=== PATIENT | female | born 1955 | race Caucasian/White ===

== ENCOUNTER → 2019-10-21 08:02 | Outpatient (BNVA) | payer MEDICARE, MEDICAID, SELFPAY | PROVIDERS: Family Provider Nurse Practitioner Family; PCP Registered Nurse; Visit Provider Registered Nurse | DX: Z01.419 Encounter for gynecological examination (general) (routine) without abnormal findings (principal); Z12.11 Encounter for screening for malignant neoplasm of colon; K21.9 Gastro-esophageal reflux disease without esophagitis; M81.0 Age-related osteoporosis without current pathological fracture | CPT/HCPCS: 88175 ==

== ENCOUNTER 2019-11-22 12:18 | Outpatient (CLI) | payer MEDICARE, MEDICAID, SELFPAY ==
--- NOTE | 2019-11-22 13:00 | MM_ITS ---
WS: [id number] BILATERAL DIGITAL SCREENING MAMMOGRAPHY WITH CAD CLINICAL INFORMATION: screening breast cancer HISTORY: Screening mammogram. No current complaints. COMPARISON: May 18, 2016 TECHNIQUE: Bilateral CC and MLO views. FINDINGS: The breasts are composed of heterogeneous fibroglandular density tissue, which can limit the detectio n of small underlying mass lesions. Lucent centered calcifications. No suspicious mass, asymmetry, ca lcifications, or architectural distortion. No evidence of malignancy. MM/[place] [id number] IMPRESSION: BI-RADS: 2-Benign FOLLOW UP: 1 Year Follow-up Recommend return to annual screening mammography.
--- NOTE | 2019-11-22 13:33 | XR_ITS ---
WS: [id number] Bone mineral density performed on a [employer], 11/22/2019 Clinical data: bone density screen-medicare Findings: The first 4 lumbar vertebral bodies demonstrated the bone mineral density of 0.849 g/cm2 for a young adult T score of -2.8. There is a slight levoscoliosis. Measurement of the left hip reveals a bone mineral density of 0.787 g/cm2 with a young adult T score of -1.7. Measurement of the right hip reveals the bone mineral density of 0.807 g/cm2 for young adult T score of -1.6. XR/XR DEXA axial skeleton* [id number] Impression: 1. Osteoporosis of the lumbar vertebral bodies. 2. Osteopenia of both hips.
== END 2019-11-22 12:19 | disposition home or self-care (01) ==
LOC: RADSHAW 12:22
PROVIDERS: Family Provider Registered Nurse; PCP Registered Nurse; Visit Provider Registered Nurse
DX: M81.0 Age-related osteoporosis without current pathological fracture (principal); Z12.31 Encounter for screening mammogram for malignant neoplasm of breast
CPT/HCPCS: 77067; 77080

== ENCOUNTER 2020-03-13 07:43 | Outpatient (CLI) | payer MEDICARE, MEDICAID, SELFPAY ==
--- NOTE | 2020-03-13 08:00 | USCV_ITS ---
MorganZeeshan yorkine Age: 64 Gender: F : 1955 Exam Date: 03/13/2020 08:20 Ordering Phys: Carolynn Carbone CERTIFIED OPHTHALMIC SURGICAL ASSISTANT Technologist: HARRISON SOTO [place] [facility] [place]: [place] LEG PAIN PROCEDURES: Venous duplex imaging was performed in only the right lower extremity. The following venous structures were evaluated: common femoral vein, profunda vein, proximal portion of the greater saphenous vein, superficial femoral vein, and the popliteal vein. In addition, the posterior tibial and peroneal trunk were evaluated. Serial compression, augmentation maneuvers, and spectral Doppler flow evaluation were performed. FINDINGS: Normal 2-D Doppler and augmentation and compressibility throughout the lower extremity venous structures. Additional imaging through the proximal calf veins also reveals no thrombus. Limited evaluation of the greater saphenous vein is patent with no thrombus.. CONCLUSIONS No evidence of right lower extremity DVT. . Ralph Naranjo MD (Electronically Signed) Final Date: 13 March 2020 13:21 Amended: 16 March 2020 12:34 C
== END 2020-03-13 07:44 | disposition home or self-care (01) ==
PROVIDERS: PCP Registered Nurse; Visit Provider Registered Nurse
DX: M79.604 Pain in right leg (principal)
CPT/HCPCS: 93971

== ENCOUNTER 2021-02-25 12:44 | Outpatient (CLI) | payer MEDICARE, MEDICAID, SELFPAY ==
--- NOTE | 2021-02-25 13:00 | MM_ITS ---
WS: [id number] BILATERAL DIGITAL SCREENING MAMMOGRAPHY WITH CAD CLINICAL INFORMATION: Z12.31 - Encounter for screening mammogram for malignant ... HISTORY: Screening mammogram. No current complaints. COMPARISON: November 14, 2019 TECHNIQUE: Bilateral CC and MLO views. FINDINGS: The breasts are composed of heterogeneous fibroglandular density tissue, which can limit the detectio n of small underlying mass lesions. Punctate and lucent centered calcifications. No suspicious mass, asymmetry, calcifications, or architectural distortion. No evidence of malignancy. MM/[id number] IMPRESSION: BI-RADS: 2-Benign FOLLOW UP: 1 Year Follow-up Recommend return to annual screening mammography.
== END 2021-02-25 12:45 | disposition home or self-care (01) ==
LOC: RADSHAW 12:49
PROVIDERS: PCP Registered Nurse; Visit Provider Registered Nurse
DX: Z12.31 Encounter for screening mammogram for malignant neoplasm of breast (principal)
CPT/HCPCS: 77067

== ENCOUNTER → 2021-11-08 08:17 | Outpatient (BNVA) | payer MEDICARE, MEDICAID, SELFPAY | PROVIDERS: PCP Registered Nurse; Visit Provider Registered Nurse | DX: I10 Essential (primary) hypertension (principal); E78.5 Hyperlipidemia, unspecified | CPT/HCPCS: 80053; 80061; 85025; 86141 ==

== ENCOUNTER → 2021-12-23 11:50 | Outpatient (BNVA) | payer MEDICARE, MEDICAID, SELFPAY | PROVIDERS: PCP Registered Nurse; Visit Provider Internal Medicine | DX: G45.9 Transient cerebral ischemic attack, unspecified (principal); I10 Essential (primary) hypertension; Z79.01 Long term (current) use of anticoagulants | CPT/HCPCS: 99204 ==

== ENCOUNTER 2022-02-15 12:52 | Outpatient (CLI) | payer MEDICARE, MEDICAID, SELFPAY ==
--- NOTE | 2022-02-15 13:30 | USCV_ITS ---
Michelle Morgan Age: 66 Gender: F : 1955 Exam Date: 02/15/2022 13:06 Ordering Phys: Cameron Herman M.D ([email or web address]) Technologist: QUETA [place] [facility] [place]: dizzy Risk Factors: Previous Vascular Surgery: Right Brachial BP: / Left Brachial BP: / Right Left Velocity (cm/s) Spectral Plaque Velocity (cm/s) Spectral Plaque Syst/Diast Broadening Syst/Diast Broadening 94.80/ 18.70 Prox CCA 104.30/ 25.20 71.70/ 14.30 Mid CCA 95.30 / 27.00 78.30/ 18.70 Distal CCA 93.50 / 25.20 107.90/21.60 Hetro Prox ICA 91.70 / 14.40 Hetro 133.10/34.20 Mid ICA 122.30/ 37.80 125.90/43.20 Distal ICA 122.30/ 36.00 136.70 ECA 120.50 1.40 ICA/CCA 1.17 Antegrade Vertebral Antegrade 79.20/ 19.80 cm/s 61.70/ 15.40 cm/s Bi Subclavian Bi 104.3 149.9 0 0 FINDINGS Comparison: none available. No significant elevation of systolic or diastolic velocities. Waveforms are normal. Minimal bilateral, carotid atherosclerosis with no elevation of velocity. Antegrade vertebral arteries. CONCLUSIONS Bilateral ICA stenosis less than 50%. Mild carotid atherosclerosis. Dr. Mayte Diane DO (Electronically Signed) Final Date: 15 Feb 2022 15:39 S
== END 2022-02-15 12:53 | disposition home or self-care (01) ==
PROVIDERS: PCP Registered Nurse; Visit Provider Internal Medicine
DX: I65.23 Occlusion and stenosis of bilateral carotid arteries (principal)
CPT/HCPCS: 93880

== ENCOUNTER → 2022-03-24 14:31 | Outpatient (BNVA) | payer MEDICARE, MEDICAID, SELFPAY | PROVIDERS: PCP Registered Nurse; Visit Provider Internal Medicine | DX: I10 Essential (primary) hypertension (principal); G45.9 Transient cerebral ischemic attack, unspecified | CPT/HCPCS: 99213; 99214 ==

== ENCOUNTER 2022-07-22 14:50 | Outpatient (CLI) | payer MEDICARE, MEDICAID, SELFPAY ==
--- NOTE | 2022-07-22 15:08 | MM_ITS ---
WS: [id number] BILATERAL 3D TOMOSYNTHESIS DIGITAL SCREENING MAMMOGRAPHY WITH CAD CLINICAL INFORMATION: Z12.31 - Encounter for screening mammogram for malignant ... HISTORY: Screening mammogram. No current complaints. COMPARISON: February 25, 2021 TECHNIQUE: Bilateral CC and MLO views. FINDINGS: The breasts are composed of heterogeneous fibroglandular density tissue, which can limit the detectio n of small underlying mass lesions. Lucent centered calcification LEFT breast. No suspicious mass, as ymmetry, calcifications, or architectural distortion. No evidence of malignancy. MM/[place] [id number] IMPRESSION: BI-RADS: 2-Benign FOLLOW UP: 1 Year Follow-up Recommend return to annual screening mammography.
== END 2022-07-22 14:51 | disposition home or self-care (01) ==
LOC: RAD 14:52
PROVIDERS: PCP Registered Nurse; Visit Provider Registered Nurse
DX: Z12.31 Encounter for screening mammogram for malignant neoplasm of breast (principal)
CPT/HCPCS: 77063; 77067

== ENCOUNTER → 2022-09-22 14:50 | Outpatient (BNVA) | payer MEDICARE, MEDICAID, SELFPAY | PROVIDERS: PCP Registered Nurse; Visit Provider Internal Medicine | DX: I10 Essential (primary) hypertension (principal); Z86.73 Personal history of transient ischemic attack (TIA), and cerebral infarction without residual deficits | CPT/HCPCS: 99213 ==

== ENCOUNTER → 2023-01-13 09:05 | Outpatient (BNVA) | payer MEDICARE, MEDICAID, SELFPAY | PROVIDERS: PCP Registered Nurse; Visit Provider Registered Nurse | DX: I10 Essential (primary) hypertension (principal); L98.9 Disorder of the skin and subcutaneous tissue, unspecified | CPT/HCPCS: 85025; 88304 ==

== ENCOUNTER → 2023-01-16 08:05 | Outpatient (BNVA) | payer MEDICARE, MEDICAID, SELFPAY | PROVIDERS: PCP Registered Nurse; Visit Provider Registered Nurse | DX: I10 Essential (primary) hypertension (principal) | CPT/HCPCS: 80053; 84443; 85025 ==

== ENCOUNTER 2023-05-20 00:46 | Emergency (ER) | payer MEDICARE, MEDICAID, SELFPAY ==
[2023-05-20 00:48] VITALS: BP 202/109; PULSE 73; RESP 18; TEMP 36.4; O2SAT 98; BMI 26.2
[2023-05-20 00:56] VITALS: BP 202/109; PULSE 72; RESP 19; O2SAT 99
--- NOTE | 2023-05-20 01:05 | CTR_ITS ---
PROCEDURE INFORMATION: Exam: CT Head Without Contrast Exam date and time: 05/20/2023 1:18 AM Age: 67 years old Clinical indication: Pain; Headache; Patient HX: Diffuse JORGE with hypertension; Additional info: Headache, HTN TECHNIQUE: Imaging protocol: Computed tomography of the head without contrast. Radiation optimization: All CT scans at this facility use at least one of these dose optimization techniques: automated exposure control; mA and/or kV adjustment per patient size (includes targeted exams where dose is matched to clinical indication); or iterative reconstruction. REPORTING DATA: Count of CT and Cardiac NM exams in prior 12 months: This patient has received 0 known CTs and 0 known cardiac nuclear medicine studies in the 12 months prior to the current study. COMPARISON: No relevant prior studies available. RADIATION DOSE METRICS: Total DLP (mGy-cm): 942.68 FINDINGS: Brain: No hemorrhage. Unremarkable white matter. No mass effect. Preserved hoover-white interfaces. Cerebral ventricles: No ventriculomegaly. Paranasal sinuses: Diffuse opacification the ethmoid air cells and sphenoid sinuses. Clear frontal sinuses. Maxillary sinuses are not visualized. Mastoid air cells: Visualized mastoid air cells are well aerated. Auditory system: No middle ear fluid. Retained cerumen noted in the right external auditory canal. Bones/joints: Unremarkable. No acute fracture. Soft tissues: Unremarkable. CT/CT head wo con* [id number] IMPRESSION: 1. Considerable mucosal thickening in the ethmoid and sphenoid sinuses. Maxillary sinuses are not visualized in the scan range. 2. No evidence of acute intracranial hemorrhage, mass effect, or edema.
--- NOTE | 2023-05-20 01:06 | ECG_ITS ---
[facility] Test Date: 2023-05-20 Pat Name: Michelle Morgan Department: Room: Gender: Female Outreach Manager: : 1955 Requested By: Jordan Sánchez Order Number: [id number] [place] MD: Cameron Herman M.D. Measurements Intervals [place] Rate: 79 P: 145 NH: 156 QRS: 209 QRSD: 102 T: 162 QT: 399 QTc: 458 Interpretive Statements SINUS RHYTHM ARM LEADS REVERSED [INVERTED P AND QRS IN I] No previous ECG available for comparison Electronically Signed On 05-20-2023 14:41:59 CDT by Cameron Herman M.D. [id number]
[2023-05-20 01:15] LABS: Basophils % 0.4 %; Eosinophils # 0.1 10^3/uL (0.0-0.8); Eosinophils % 2.3 %; Hematocrit 34.4 % (36-47); Lymphocytes # 1.3 10^3/uL (0.8-4.8); Mean Corpuscular HGB Conc 33.4 g/dL (30-55); Mean Corpuscular Hemoglobin 28.5 pg (27-33); Mean Corpuscular Volume 85.4 fl (85-98); Mean Platelet Volume 9.5 fL (7.4-10.4); Monocytes # 0.3 10^3/uL (0.2-0.9); Monocytes % 6.2 %; Neutrophils % 65.7 %; Nucleated Red Blood Cells % 0 %; Platelet Count 224 10^3/cmm (157-399); Red Blood Count 4.03 10^6/uL (3.85-5.65); Red Cell Distribution Width 12.2 % (12.1-15.1); White Blood Count 5.32 10^3/uL (3.29-11.43)
[2023-05-20 01:42] LABS: INR 0.91 (0.8-1.2)
[2023-05-20 01:43] LABS: Partial Thromboplastin Time 28.1 SECONDS (23.9-36.7)
[2023-05-20 01:50] LABS: Alanine Aminotransferase 31 U/L (0-33); Albumin Level 4.1 g/dL (3.5-5.2); Alkaline Phosphatase 60 U/L (35-105); Anion Gap 14.4 (5-19); Aspartate Amino Transferase 29 U/L (0-32); Blood Urea Nitrogen 13 mg/dL (8-23); Carbon Dioxide 29 mmol/L (22-29); Chloride 95 mmol/L (98-107); Glomerular Filtration Rate 71.3 mL/min (90-130); Glucose 119 mg/dL (65-115); Osmolality Calculated 281 mOsm/kg (285-295); Potassium 3.4 mmol/L (3.5-5.1); Sodium 135 mmol/L (136-145); Total Bilirubin 0.4 mg/dL (0.15-1.2); Total Protein 7.1 g/dL (6.6-8.7)
[2023-05-20] MEDS: amlodipine 10 mg Tablet PO (01:52)
[2023-05-20 02:03] VITALS: BP 177/94; PULSE 75; RESP 22; O2SAT 99
[2023-05-20 02:23] VITALS: BP 157/96; PULSE 73; RESP 21; O2SAT 96
[2023-05-20 02:46] LABS: Add Urine Culture? No; Add Urine Microscopic? YES; Bacteria Urine TRACE /hpf; Bilirubin Urine Neg (Negative); Blood Urine 2+ (Negative); Glucose Urine UA Norm (Normal); Ketones Urine Negative (Negative); Leukocyte Esterase Urine Trace (Negative); Nitrate Urine Negative (Negative); Protein Urine Neg (Negative); RBC Urine 0-4 /hpf (0-2); Squamous Epithelial Cell Urine 0-4 /hpf (0-5); Urine Appearance Clear (CLEAR); Urine Color Yellow (Yellow); Urobilinogen Urine Norm (Negative); WBC Urine 0-4 /hpf (0-5); pH Urine 7 (5-7)
[2023-05-20 02:55] LABS: SARS Covid-2 Antigen negative (Negative)
[2023-05-20] MEDS: doxycycline 100 mg Tablet PO (03:21)
[2023-05-20] MEDS: oxymetazoline 0.05% Nasal Spray 15 mL 2 SPRAY NOSTRIL-B (03:21)
[2023-05-20 03:23] VITALS: BP 160/86; PULSE 97; RESP 16; O2SAT 98
--- NOTE | 2023-05-20 03:37 | ED_ITS ---
HPI - Headache General: Chief Complaint: Headache Stated Complaint: HIGH HEART RATE Time Seen by Provider: 05/20/23 00:56 History of Present Illness: 67-year-old female with a history of hypertension. She is also on Plavix. notes that she had an episode of syncope last week in the bathroom. She struck her head, and had a right black eye. This is resolving. She has had trouble with her blood pressure being up this evening. She checked it because of a headache and some mild dizziness. Dizziness is improved. Headache is a 2 out of 10. No trouble with vision, speech, gait, or weakness. No paresthesias. No chest discomfort. The notes that they have both been sick with a viral type illness. She notes some sinus congestion, chills, etc. Symptoms are about a week old. Associated symptoms: Reports nausea; Deny chest pain, fever(s), rash or vomiting Review of Systems Const: Reports: chills; Denies: fever(s) Eyes: Denies: change in vision ENMT: Denies: throat pain Card: Denies: chest pain Resp: Denies: dyspnea GI: Reports: nausea; Denies: abdominal pain or vomiting Musc: Denies: neck pain Skin/Breast: Denies: rash Neuro: Reports: headache(s); Denies: numbness in extremities or weakness in extremities PFSH ED PFSH: Family History Mother Dementia Father Heart disease Social History Smoking and tobacco status: never smoked Second hand smoke exposure: No Alcohol intake: never Substance/Drug Use: never Adopted: No Lives independently: No Household members: spouse Marital status: Current occupational status: other Details: Unk Physical Exam Const: COMMON NORMALS: no acute distress and alert GENERAL APPEARANCE: cooperative; not ill appearing and not frail appearing HENMT: COMMON NORMALS: normocephalic and Normal external nose present HEAD & SCALP: normocephalic and contusion (Resolving right periorbital ecchymosis) FACE & SINUS: normal facial exam and face symmetric NOSE: Normal external no se present MOUTH: Normal oral and palatal mucosa present Eye: COMMON NORMALS: Equal, round and reactive pupils present and EOMs intact bilaterally PUPIL: Yes Equal, round and reactive pupils present Neck/C-Spine: GENERAL: Yes trachea midline Chest: CHEST: Yes Symmetrical chest wall rise Resp: COMMON NORMALS: normal respiratory effort, No retractions, No use of accessory muscles and clear to auscultation bilaterally AUSCULTATION: clear to auscultation bilaterally Cardio: COMMON NORMALS: regular rate and regular rhythm RATE: regular rate RHYTHM: regular rhythm GI: COMMON NORMALS: Normal to inspection, nondistended, normoactive bowel so unds present Extremity: COMMON NORMALS: no pedal edema Neuro: CIARRA COMA SCALE: document GCS findings [place] coma scale eye opening: Spontaneous Ciarra coma scale verbal response: Orientated Ciarra coma scale motor response: Obey commands [place] coma scale total score: 15 SENSORIUM/ORIENTATION: Yes alert CRANIAL NERVES: Yes CN normal except as noted COORDINATION/BALANCE: bgphgm-aw-vyig test normal and wjko-ng-aiuh test normal SPEECH: speech normal SENSORY EXAM: Yes extremities (intact) MOTOR EXAM: Pronator motor function not present, Motor fasciculations not present and Normal motor muscle tone present throughout COORDINATION: zlvmip-vq-gygu test normal and obno-qe-aosg test normal Psych: COMMON NORMALS: speech normal SPEECH: Yes normal speech Skin: COMMON NORMALS: no rashes or lesions noted GENERAL SKIN EXAM: no rashes or lesions noted Course Vital Signs: Vital signs: Vital Signs Temperature 97.6 F 05/20/23 00:48 Pulse Rate 97 05/20/23 03:23 Respiratory Rate 16 05/20/23 03:23 Blood Pressure 160/86 05/20/23 03:23 Pulse Oximetry 98 05/20/23 03:23 Oxygen Delivery Me thod Room Air 05/20/23 02:23 MDM - Headache Medical Decision Making Patient's blood pressures improved after amlodipine here. Serum work-up is not remarkable. Head CT shows considerable mucosal thickening in the ethmoid and sphenoid sinuses increasing the chances of sinus headache in this patient. She will be treated as such. She will be prescribed as needed amlodipine for unc ontrolled blood pressure as well. Outpatient follow-up closely. To return for new or worsening symptoms. Lab Data 05/20/23 01:11 05/20/23 01:[address] 05/20/23 01:05 IMPRESSION: 1. Considerable mucosal thickening in the ethmoid and sphenoid sinuses. Maxillary sinuses are not visualized in the scan range. 2. No evidence of acute intracranial hemorrhage, mass effect, or edema. Laboratory Results WBC 5.32 10^3/uL (3.29-11.43) 05/20/23 01:11 RBC 4.03 10^6/uL (3.85-5.65) 05/20/23 01:11 Hgb 11.50 g/dL (11.27-16.99) 05/20/23 01:11 Hct 34.4 % (36-47) L 05/20/23 01:11 MCV 85.4 fl (85-98) 05/20/23 01:11 MCH 28.5 pg (27-33) 05/20/23 01:11 MCHC 33.4 g/dL (30-55) 05/20/23 01:11 RDW 12.2 % (12.1-15.1) 05/20/23 01:11 Plt Count 224 10^3/cmm (157-399) 05/20/23 01:11 MPV 9.5 fL (7.4-10.4) 05/20/23 01:11 Neut % (Auto) 65.7 % 05/20/23 01:11 Lymph % (Auto) 25.0 % 05/20/23 01:11 Catron % (Auto) 6.2 % 05/20/23 01:11 Eos % (Auto) 2.3 % 05/20/23 01:11 Baso % (Auto) 0.4 % 05/20/23 01:11 Neut # (Auto) 3.50 10^3/uL (1.8-7.7) 05/20/23 01:11 Lymph # (Auto) 1.3 10^3/uL (0.8-4.8) 05/20/23 01:11 Catron # (Auto) 0.3 10^3/uL (0.2-0.9) 05/20/23 01:11 Eos # (Auto) 0.1 10^3/uL (0.0-0.8) 05/20/23 01:11 Baso # (Auto) 0.0 10^3/uL (0.0-0.1) 05/20/23 01:11 Nucleated RBC % (auto) 0 % 05/20/23 01:11 Nucleated RBCs # 0.0 /100WBC 05/20/23 01:11 PT 12.50 SECONDS (12.1-14.9) 05/20/23 01:11 INR 0.91 (0.8-1.2) 05/20/23 01:11 APTT 28.1 SECONDS (23.9-36.7) 05/20/23 01:11 Sodium 135 mmol/L (136-145) L 05/20/23 01:11 Potassium 3.4 mmol/L (3.5-5.1) L 05/20/23 01:11 Chloride 95 mmol/L (98-107) L 05/20/23 01:11 Carbon Dioxide 29 mmol/L (22-29) 05/20/23 01:11 Anion Gap 14.4 (5-19) 05/20/23 01:11 BUN 13 mg/dL (8-23) 05/20/23 01:11 Creatinine 0.8 mg/dL (0.5-0.9) 05/20/23 01:11 GFR Calculation 71.3 mL/min (90-130) L 05/20/23 01:11 Glucose 119 mg/dL (65-115) H 05/20/23 01:11 Calculated Osmolality 281 mOsm/kg (285-295) L 05/20/23 01:11 Calcium 9.0 mg/dL (8.5-10.5) 05/20/23 01:11 Total Bilirubin 0.4 mg/dL (0.15-1.2) 05/20/23 01:11 AST 29 U/L (0-32) 05/20/23 01:11 ALT 31 U/L (0-33) 05/20/23 01:11 Alkaline Phosphatase 60 U/L (35-105) 05/20/23 01:11 Total Protein 7.1 g/dL (6.6-8.7) 05/20/23 01:11 Albumin 4.1 g/dL (3.5-5.2) 05/20/23 01:11 Globulin 3.0 g/dL (1.3-4.6) 05/20/23 01:11 Urine Color Yellow (Yellow) 05/20/23 01:56 Urine Appearance Clear (CLEAR) 05/20/23 01:56 Urine pH 7 (5-7) 05/20/23 01:56 Ur Specific [place] 1.000 (1.005-1.030) L 05/20/23 01:56 Urine Protein Neg (Negative) 05/20/23 01:56 Urine Glucose (UA) Norm (Normal) 05/20/23 01:56 Urine Ketones Negative (Negative) 05/20/23 01:56 Urine Blood 2+ (Negative) H 05/20/23 01:56 Urine Nitrate Negative (Negative) 05/20/23 01:56 Urine Bilirubin Neg (Negative) 05/20/23 01:56 Urine Urobilinogen Norm mg/dL (Negative) 05/20/23 01:56 Ur Leukocyte Esterase Trace (Negative) H 05/20/23 01:56 Urine RBC 0-4 /hpf (0-2) H 05/20/23 01:56 Urine WBC 0-4 /hpf (0-5) H 05/20/23 01:56 Ur Squamous Epith Cells 0-4 /hpf (0-5) H 05/20/23 01:56 Amorphous Sediment Not Reportable 05/20/23 01:56 Urine Bacteria Trace /hpf (NONE) 05/20/23 01:56 SARS-CoV-2 Ag (Rapid) negative (Negative) 05/20/23 02:22 Discharge Plan Discharge Patient Disposition: Home Clinical Impression: Essential hypertension, Sinusitis Condition: Stable Prescriptions: New doxycycline hyclate 100 mg tablet 100 mg PO BID 10 Days Qty: 20 0RF amlodipine 10 mg tablet 10 mg PO DAILY Qty: 30 0RF Afrin (oxymetazoline) 0.05 % mist 2 spray intranasal BID 3 Days Qty: 15 0RF No Action metoprolol tartrate 25 mg tablet 12.5 mg PO BID Qty: 180 3RF aspirin [Adult Low Dose Aspirin] 81 mg tablet,delayed release (DR/EC) 81 mg PO DAILY fluorouracil 5 % cream See Rx Instructions topical BID 28 Days Qty: 40 0RF Rx Instructions: Apply BID for 2 weeks then once a day for an additional 2 weeks omeprazole 20 mg capsule,delayed release(DR/EC) See Rx Instructions .ROUTE .COMPLEX Qty: 90 0RF Dose Instruction: Take 1 capsule by mouth once daily Rx Instructions: Take 1 capsule by mouth once daily losartan-hydrochlorothiazide 100-25 mg tablet See Rx Instructions .ROUTE .COMPLEX Qty: 90 0RF Dose Instruction: TAKE 1/2 TABLET BY MOUTH TWICE DAILY Rx Instructions: TAKE 1/2 TABLET BY MOUTH TWICE DAILY rosuvastatin 20 mg tablet See Rx Instructions .ROUTE .COMPLEX Qty: 90 0RF Dose Instruction: Take 1 tablet by mouth once daily Rx Instructions: Take 1 tablet by mouth once daily Discharge Orders: Discharge ED (Routine); Ordered 05/20/23 Ordered By: Jordan Westfall Referrals: Carolynn Carbone FNP [Primary Care Provider] - 4-7 days Patient Instructions: Sinusitis (ED), Hypertension (ED) Activity Restrictions/Additional Instructions: Medications as directed. Check your blood pressure twice daily. Report them to your doctor. If numbers are staying greater than 150/90, you may take the medication prescribed. You do not have to take the medication if your blood pressure stays down. Return for worsening headache, mental status changes, weakness, language or vision problems, any other concerning symptoms. Coding Level of Care Code ED Aco Coordinator for Edgar Godfrey
== END 2023-05-20 03:28 | disposition home or self-care (01) ==
PROVIDERS: Emergency Provider Emergency Medicine; PCP Registered Nurse
DX: I10 Essential (primary) hypertension (principal); J32.9 Chronic sinusitis, unspecified; Z79.82 Long term (current) use of aspirin; Z20.822 Contact with and (suspected) exposure to COVID-19
CPT/HCPCS: 36415; 70450; 80053; 81001; 85025; 85610; 85730; 87426; 93005; 99285

== ENCOUNTER → 2023-06-22 13:05 | Outpatient (BNVA) | payer MEDICARE, MEDICAID, SELFPAY | PROVIDERS: PCP Registered Nurse; Visit Provider Internal Medicine | DX: I10 Essential (primary) hypertension (principal); Z86.73 Personal history of transient ischemic attack (TIA), and cerebral infarction without residual deficits | CPT/HCPCS: 99214 ==

== ENCOUNTER → 2023-07-18 10:38 | Outpatient (BNVA) | payer MEDICARE, MEDICAID, SELFPAY | PROVIDERS: PCP Registered Nurse; Visit Provider Registered Nurse | DX: Z00.00 Encounter for general adult medical examination without abnormal findings (principal); Z23 Encounter for immunization; Z12.31 Encounter for screening mammogram for malignant neoplasm of breast; I10 Essential (primary) hypertension; M81.0 Age-related osteoporosis without current pathological fracture; Z71.85 Encounter for immunization safety counseling; Z71.3 Dietary counseling and surveillance | CPT/HCPCS: 80053; 80061; 85025 ==

== ENCOUNTER 2023-08-02 14:11 | Outpatient (CLI) | payer MEDICARE, MEDICAID, SELFPAY ==
--- NOTE | 2023-08-02 15:00 | XR_ITS ---
WS: [id number] DEXA (DUAL ENERGY X-RAY ABSORPTIOMETRY) Bone mineral density was performed using a [employer] machine. HISTORY: M81.0 - Age-related osteoporosis without current patholog... COMPARISON: 11/22/2019 Lumbar spine BMD (L1-L4): 0.848 g/cm2 T score: -2.8 Z score: -1.4 Total hip BMD: Left: 0.823 g/cm2. T score: -1.5 Z score: -0.2 Right: 0.838 g/cm2. T score: -1.4 Z score: -0.1 10 year probability of a major osteoporotic fracture is 14.8%. Compared to the prior study from 11/22/2019. Lumbar spine bone mineral density has increased by 0.1%. Bilateral hips bone mineral density has increased by 4.1%. IMPRESSION: OSTEOPOROSIS based upon the WHO classification for females. Significant increase in bone mineral density within the hips since the prior study.
--- NOTE | 2023-08-02 15:12 | MM_ITS ---
WS: [id number] BILATERAL 3D TOMOSYNTHESIS DIGITAL SCREENING MAMMOGRAPHY WITH CAD CLINICAL INFORMATION: Z12.31 - Encounter for screening mammogram for malignant ... HISTORY: Screening mammogram. No current complaints. COMPARISON: 2021 TECHNIQUE: Bilateral CC and MLO views. FINDINGS: Scattered fibroglandular densities bilaterally. No suspicious focal mass, asymmetry, calcifications, or architectural distortion. No evidence of malignancy. Incidental lucent centered calcifications. In cidental punctate calcifications. IMPRESSION: MM/[place] [id number] BI-RADS: 2-Benign FOLLOW UP: 1 Year Follow-up Recommend return to annual screening mammography.
== END 2023-08-02 14:12 | disposition home or self-care (01) ==
LOC: RAD 14:11
PROVIDERS: PCP Registered Nurse; Visit Provider Registered Nurse
DX: M81.0 Age-related osteoporosis without current pathological fracture (principal); Z12.31 Encounter for screening mammogram for malignant neoplasm of breast
CPT/HCPCS: 77063; 77067; 77080

== ENCOUNTER → 2023-11-16 15:28 | Outpatient (BNVA) | payer MEDICARE, MEDICAID, SELFPAY | PROVIDERS: PCP Registered Nurse; Visit Provider Registered Nurse | DX: N89.8 Other specified noninflammatory disorders of vagina (principal); R31.9 Hematuria, unspecified | CPT/HCPCS: 81000; 87086 ==

== ENCOUNTER → 2023-11-29 15:02 | Outpatient (BNVA) | payer MEDICARE, MEDICAID, SELFPAY | PROVIDERS: PCP Registered Nurse; Referring Provider Registered Nurse; Visit Provider Obstetrics & Gynecology | DX: Z01.419 Encounter for gynecological examination (general) (routine) without abnormal findings (principal) | CPT/HCPCS: 87624 ==

== ENCOUNTER → 2023-12-21 14:22 | Outpatient (BNVA) | payer MEDICARE, MEDICAID, SELFPAY | PROVIDERS: PCP Registered Nurse; Visit Provider Internal Medicine | DX: I10 Essential (primary) hypertension (principal); Z86.73 Personal history of transient ischemic attack (TIA), and cerebral infarction without residual deficits | CPT/HCPCS: 99214 ==

== ENCOUNTER → 2024-07-02 13:55 | Outpatient (BNVA) | payer MEDICARE, MEDICAID, SELFPAY | PROVIDERS: PCP Registered Nurse; Visit Provider Registered Nurse | DX: N39.0 Urinary tract infection, site not specified (principal) | CPT/HCPCS: 81000; 87086 ==

== ENCOUNTER → 2024-09-05 11:03 | Outpatient (BNVA) | payer MEDICARE, SELFPAY | PROVIDERS: PCP Registered Nurse; Visit Provider Registered Nurse | DX: Z00.00 Encounter for general adult medical examination without abnormal findings (principal); I10 Essential (primary) hypertension | CPT/HCPCS: 80053; 80061; 85025 ==

== ENCOUNTER 2024-09-13 08:26 | Outpatient (CLI) | payer MEDICARE, SELFPAY ==
--- NOTE | 2024-09-13 09:00 | MM_ITS ---
WS: [id number] BILATERAL SCREENING DIGITAL TOMOSYNTHESIS MAMMOGRAM WITH CAD HISTORY: Z12.31 - Encounter for screening mammogram for malignant ... COMPARISON: 08/02/2023, 07/22/2022 Bilateral CC and MLO views with tomosynthesis and synthetic mammography submitted. Computer aided det ection analyzed. Breast composition: There are scattered areas of fibroglandular density. No suspicious masses, microc alcifications or architectural distortion. MM/MM scr tomosynthesis [id number] IMPRESSION: BI-RADS: 2 - Benign. FOLLOW UP: 1 Year Follow-up
== END 2024-09-13 08:27 | disposition home or self-care (01) ==
LOC: RAD 08:27
PROVIDERS: PCP Registered Nurse; Visit Provider Registered Nurse
DX: Z12.31 Encounter for screening mammogram for malignant neoplasm of breast (principal); R92.323 Mammographic fibroglandular density, bilateral breasts
CPT/HCPCS: 77063; 77067

== ENCOUNTER → 2024-12-19 13:48 | Outpatient (BNVA) | payer MEDICARE, SELFPAY | PROVIDERS: PCP Registered Nurse; Visit Provider Internal Medicine | DX: I10 Essential (primary) hypertension (principal); Z87.891 Personal history of nicotine dependence; Z86.73 Personal history of transient ischemic attack (TIA), and cerebral infarction without residual deficits | CPT/HCPCS: 99213 ==

== ENCOUNTER → 2025-09-08 11:48 | Outpatient (BNVA) | payer MEDICARE, SELFPAY | PROVIDERS: PCP Registered Nurse; Visit Provider Registered Nurse | DX: I10 Essential (primary) hypertension (principal) | CPT/HCPCS: 80053; 80061; 85025 ==